=== PATIENT | female | born 1970 | race African-American/Black ===

== ENCOUNTER 2024-03-10 08:08 | Emergency (ER) | payer OTHER ==
[~2024-03-10] VITALS: Ht 175.3 cm; Wt 76.4 kg
[2024-03-10 08:13] VITALS: BP 142/102; PULSE 109; RESP 20; TEMP 98.6; O2SAT 98
--- NOTE | 2024-03-10 08:31 | NUR ---
Patient being evaluated by physician at bedside.
[2024-03-10] MEDS ORDERED: ACET-8905 PO (08:39)
[2024-03-10] MEDS: MORPHINE SULFATE 4 MG/ML SYR IM ONE ×2 (08:39→09:14)
[2024-03-10] MEDS ORDERED: IBUP-2213 PO (08:39)
--- NOTE | 2024-03-10 08:40 | NUR ---
53 yo female with neck pain for three weeks. Pt describes sharp constant 10/10 pain in bilateral neck with radiation to right shoulder. Pt took Motrin and Baclofen without improvement in pain. Pt denies trauma. Pt denies fever, chills, nausea or vomiting. Call light with in reach; Pt positioned on right side for comfort; vss; provider made aware.
--- NOTE | 2024-03-10 08:42 | NUR ---
pt has been medicated per providers request.
--- NOTE | 2024-03-10 09:14 | NUR ---
pt has been medicated per providers request.
[2024-03-10 09:43] VITALS: BP 140/76; PULSE 77; RESP 18; TEMP 97.3; O2SAT 98
--- NOTE | 2024-03-10 09:44 | NUR ---
Patient discharged with v/s stable. Written and verbal after care instructions given and explained. Patient alert, oriented and verbalized understanding of instructions. Ambulatory with steady gait. All questions addressed prior to discharge. ID band removed. Patient advised to follow up with PMD. Rx SENT TO PHARMACY. Patient educated on indication of medication including possible reaction and side effects. Opportunity to ask questions provided and answered.
== END 2024-03-10 09:44 | disposition home or self-care (01) ==
LOC: MED 08:08
DX: M54.2 Cervicalgia (principal); I10 Essential (primary) hypertension; Z90.710 Acquired absence of both cervix and uterus; Z98.890 Other specified postprocedural states; Z79.899 Other long term (current) drug therapy
CPT/HCPCS: 96372; 99284; J2270